=== PATIENT | male | born 1985 | race Caucasian/White ===

== ENCOUNTER 2017-03-27 19:23 | Emergency (ER) | payer OTHER ==
[~2017-03-27] VITALS: Ht 185.4 cm; Wt 81.6 kg
[2017-03-27] MEDS ORDERED: IBUPROFEN 400 MG TABLET ONE (19:28)
[2017-03-27] MEDS ORDERED: IBUPROFEN 400 MG TABLET PO ONE (19:30)
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
--- NOTE | 2017-03-27 19:50 | NUR ---
patient taken to radiology.
[2017-03-27 20:24] VITALS: BP 128/71
--- NOTE | 2017-03-27 20:24 | NUR ---
Patient discharged to home in stable condition. Written and verbal after care instructions given. Patient verbalizes understanding of instruction. Patient is ambulatory with steady gait, no further complaints.
== END 2017-03-27 20:25 | disposition home or self-care (01) ==
LOC: ER 19:24
DX: S39.012A Strain of muscle, fascia and tendon of lower back, initial encounter (principal); V43.52XA Car driver injured in collision with other type car in traffic accident, initial encounter; Y93.89 Activity, other specified; Y92.89 Other specified places as the place of occurrence of the external cause; Y99.9 Unspecified external cause status
CPT/HCPCS: 72100; 99284; A4606; Z7610